=== PATIENT | female | born 1970 | race Caucasian/White ===

== ENCOUNTER 2025-03-02 11:23 | Emergency (ER) | payer OTHER ==
[~2025-03-02] VITALS: Ht 165.1 cm; Wt 77.0 kg
[2025-03-02 11:27] VITALS: BP 131/91; PULSE 102; RESP 18; TEMP 98.4; O2SAT 99
[2025-03-02 12:04] LABS: PLATELET COUNT (AUTO) 285 K/uL (150-450); RED BLOOD CELL COUNT(AUTO) 4.71 MIL/uL (4.00-5.20); RED CELL DISTRIBUTION WIDTH 15.6 % (11.5-14.5); WHITE BLOOD COUNT (AUTO) 6.2 K/uL (4.5-11.0)
[2025-03-02 12:11] LABS: CALCIUM, TOTAL 8.4 mg/dL (8.8-10.5); CREATININE 0.72 mg/dL (0.60-1.30); GLOMERULAR FILTR. RATE CALC > 60 mL/min (>60); GLUCOSE,RANDOM 96 mg/dL (70-110); SODIUM SERUM 138 mmol/L (136-145); UREA NITROGEN, BLOOD 4 mg/dL (7-18)
[2025-03-02 12:16] LABS: ASPARTATE AMINOTRANSFERASE 42.0 U/L (15-37); TOTAL PROTEIN, SERUM 8.1 g/dL (6.4-8.2)
[2025-03-02] MEDS: NYSTATIN 500,000 UNITS/5 ML SUSPENSION UDCUP PO ONE (13:00)
[2025-03-02] MEDS ORDERED: NYST100033 PO (13:20)
== END 2025-03-02 13:46 | disposition home or self-care (01) ==
LOC: EMS 11:25
DX: B37.0 Candidal stomatitis (principal); Z11.3 Encounter for screening for infections with a predominantly sexual mode of transmission
CPT/HCPCS: 80048; 80076; 84703; 85025; 85610; 85730; 86592; 87210; 87389; 87491; 87591; 99283